=== PATIENT | female | born 1955 | race African-American/Black ===

== ENCOUNTER → 2018-11-09 | Outpatient (CLI) | payer OTHER ==
[2018-10-09 11:00] VITALS: BP 144/66
[~2018-11-09] MED LIST: AMLO5TAB10 PO
--- NOTE | 2018-11-09 14:31 | CARD ---
MR#: [id number] Date of Study: 11/09/2018 Ordering Physician: LIANE RODRIGUEZ, Referring Physician: LIANE RODRIGUEZ, Tech: Payton Snowden RDCS APPROVED REPORT INDICATION Chest Pain PROCEDURE The patient underwent an Exercise Stress Test using the [place] Protocol. Blood pressure, heart rate, a nd EKG were monitored. An Echocardiogram was performed by p 3 armament/ordnance ima technician in four stages in quad fashion. At peak stress four se lected images were obtained and placed side by side with resting images for comparison. STRESS ECHO FINDINGS The resting Echocardiogram showed normal left ventricular systolic contractility with an estimated Ej ection Fraction of about 60 %. The Resting Echocardiogram showed normal augmentation of myocardial wall segments using a 16 segment model. The Stress Echocardiogram showed normal augmentation of myocardial wall segments using a 16 segment m barney. The Stress Echocardiogram left ventricular systolic contractility has an estimated Ejection Fraction of about 65%. Test Type: Exercise Stress Nurse/Tech: Jaquan Moser RN Test Indications: CP Cardiac History and Allergies: See EMR Medications: See EMR Medical History: See EMR Resting ECG: SR Resting Heart Rate: 67 bpm Resting Blood Pressure: 123/49mmHg Pretest Chest Pain: No chest pain Nurse/Tech Notes S1S2. Consent: The procedure was explained to the patient in lay terms. Informed consent was witnessed. Dom eout was entered into [employer]. History and Stress Test performed by Coty Arthur R.N. Stress Symptoms Dyspnea POST EXERCISE Reason for Termination: Reached target heart rate Target HR: No Max HR: 152 bpm 96% of Maximum Predicted HR: 158 bpm Exercise duration: 6:02 min:sec, 3 Stage Exercise capacity: 7.0METs Max Blood Pressure: 210/70mmHg Blood Pressure response to exercise: Normal blood pressure response during stress. Heart Rate response to exercise: normal Chest Pain: No. Arrhythmia: Yes. PAC's in recovery stage ST Change: No. RESTING ECG Rhythm: Sinus Repolarization: Normal STRESS ECG Rhythm: Sinus Repolarization: Normal Stress EKG shows no significant changes. Preliminary Notification Critical Value: No <Conclusion> The left ventricle is normal in size and wall thickness in both the rest and stress images. No significant EKG changes Below average exercise capacity. Low risk study Signed by : Liane Rodriguez, Electronically Approved : 11/09/2018 14:31:07
== END | disposition home or self-care (01) ==
LOC: ECHO 13:14
PROVIDERS: ATTEND Internal Medicine Cardiovascular Disease
DX: R07.9 Chest pain, unspecified (principal); I49.9 Cardiac arrhythmia, unspecified
CPT/HCPCS: 93017; 93350

== ENCOUNTER → 2019-03-17 | Outpatient (CLI) | payer OTHER ==
[2018-10-09 11:00] VITALS: BP 144/66
--- NOTE | 2019-03-17 14:32 | KCIC ---
Pelvic ultrasound HISTORY: Postmenopausal bleeding and cramping. Per patient, patient had a biopsy one month ago, results are not known. Transabdominal scan: Uterus measures 12.5 x 5.7 x 8.0 cm. Uterus is heterogeneous. Ovaries are not visualized. Endovaginal scan: The endometrium is enlarged and heterogeneous with a complex appearance. The abnormal tissue at the endometrium measures about 4.0 x 6.1 x 3.6 cm. This has a heterogeneous appearance with areas of increased in areas of decreased echogenicity, and a possible complex fluid component. No definite hypervascularity is confirmed within this tissue. Right and left ovaries are not seen, may be due to bowel gas. There is no significant free pelvic fluid identified. There are some echogenic reflectors in the cervix likely calcification. IMPRESSION: 1. Large area of nonspecific abnormal tissue at the endometrium. This could represent an endometrial mass, endometritis or endometrial hemorrhage. 2. Ovaries are not visualized, likely due to bowel gas. Electronically signed by: Rainer Perez MD (03/17/2019 2:29 PM) [facility]
--- NOTE | 2019-03-17 17:35 | KCIC ---
Bilateral digital screening mammograms: Reason for examination: Routine screening. New baseline. Interpretation was made with the benefit of CAD. The skin and nipples show no abnormalities. No abnormal axillary lymph nodes are seen. The breast parenchyma shows scattered fibroglandular density. (Breast density: Category B.) There are small nodules with lucent maynor in the 4:00 B position of the left breast and 10:00 C position of the right breast consistent with intramammary lymph nodes. There are no other dominant masses, suspicious calcifications or architectural distortions. Impression: No evidence of malignancy. Recommend routine screening. BI-RADS Category 2: Benign. "Our facility is accredited by the [employer] Mammography Program." This patient's information has been entered into a reminder system for the patient to be notified with the results of her examination and a target date for the next mammogram. Electronically signed by: Evelin Dean MD (03/17/2019 5:32 PM) [id number]
== END | disposition home or self-care (01) ==
LOC: KCIC MAMMO 08:32
PROVIDERS: ATTEND Obstetrics & Gynecology
DX: Z12.31 Encounter for screening mammogram for malignant neoplasm of breast (principal); N63.11 Unspecified lump in the right breast, upper outer quadrant; N63.23 Unspecified lump in the left breast, lower outer quadrant; N95.0 Postmenopausal bleeding; N85.8 Other specified noninflammatory disorders of uterus
CPT/HCPCS: 76830; 76856; 77067

== ENCOUNTER 2020-08-03 01:53 | Emergency (ER) | payer OTHER ==
[~2020-08-03] VITALS: Ht 162.6 cm; Wt 90.1 kg
[~2020-08-03 01:53] MED LIST changes: +AMLO-186 PO; -AMLO5TAB10 PO
[2020-08-03 02:08] VITALS: BP 139/69
--- NOTE | 2020-08-03 02:22 | PHYS DOC ---
Past Medical History Past Medical History: Cancer, Glaucoma Past Surgical History: Other Additional Past Surgical Histo: L EYE SX, R ROTATOR CUFF SX Smoking Status: Never Smoker Alcohol Use: None Drug Use: None General Adult EDM: Chief Complaint: POST-OP PROBLEM HPI: HPI: Patient is a 4-year-old female presenting with daughter for right upper extremity PICC line problems. Patient has GI related cancer that "begins with an E", but patient is unaware of the exact name. States she is currently receiving chemotherapy every Thursday in outpatient setting. She has had left upper extremity PICC line but this was recently removed and right upper extremity PICC line was placed today. Patient cites no complications during insertion but admits to mild residual blood underneath Tegaderm. Patient was on the phone with her daughter and discussed the PICC line placement today and findings of residual blood, daughter was concerned about said blood and transported mother to our facility for evaluation. On arrival, patient AAO x3, no acute distress, is asymptomatic Review of Systems: Review of Systems: Fourteen body systems of review of systems have been reviewed. See HPI for pertinent positives and negative responses, other rutledge all other systems are negative, non-pertinent or non-contributory Heart Score: Risk Factors: Risk Factors: DM, Current or recent (<one month) smoker, HTN, HLP, family history of CAD, obesity. Risk Scores: Score 0 - 3: 2.5% MACE over next 6 weeks - Discharge Home Score 4 - 6: 20.3% MACE over next 6 weeks - Admit for Clinical Observation Score 7 - 10: 72.7% MACE over next 6 weeks - Early Invasive Strategies Allergies: Allergies: Allergies Coded Allergies Type Severity Reaction Last Updated Verified Penicillins Allergy Intermediate Itching 10/08/18 Yes Physical Exam: PE: Constitutional: Well developed, well nourished, no acute distress, non-toxic ap pearance. HENT: Normocephalic, atraumatic, bilateral external ears normal, oropharynx moist, no oral exudates, nose normal. Eyes: PERRLA, EOMI, conjunctiva normal, no discharge. Neck: Normal range of motion, no tenderness, supple, no stridor. Cardiovascular: Heart rate regular, sinus rhythm, no murmurs rubs or gallops Lungs & Thorax: Bilateral breath sounds clear to auscultation Abdomen: Bowel sounds normal, soft, no tenderness, no masses, no pulsatile masses. Nonsurgical abdomen, no peritoneal signs Skin: Warm, dry, no erythema, no rash. Right upper extremity PICC line in place, dried/residual blood underneath the Tegaderm without active extravasation or obvious bleeding. Line flushes with normal saline well, not dislodged, well- appearing without any pain to palpation, crepitus, exudate or other abnormalities Back: No tenderness, no CVA tenderness. Extremities: No tenderness, no cyanosis, no clubbing, ROM intact, no edema. Neurologic: Alert and oriented X 3, grossly normal motor & sensory function, no focal deficits noted. Psychologic: Affect normal, judgement normal, mood normal. EKG: EKG: [] Radiology/Procedures: Radiology/Procedures: [] Course & Med Decision Making: Course & Med Decision Making ABCs unremarkable Comprehensive history and physical exam obtained. Patient has well-appearing right upper extremity PICC line blood likely from placement. No active bleeding. Line flushes well, is well placed and secured. Dressing clean, dry and intact I discussed limited role in further diagnostic work-up and/or intervention. I reassured both patient and daughter of physical exam findings today. Patient has good access to care with PCP and oncologist in outpatient setting, I advised him to follow-up on this matter in outpatient setting. Strict return precautions were discussed with good understanding by both patient and daughter, all questions and concerns addressed prior to ER departure in good condition Kacey Disclaimer: Kacey Disclaimer: This electronic medical record was generated, in whole or in part, using a voice recognition dictation system. Departure Departure Impression: Primary Impression: Bleeding from PICC line Disposition: 01 DC HOME SELF CARE/HOMELESS Condition: GOOD Referrals: MAURA JIMENEZ (PCP) Patient Instructions: PICC Home Guide Additional Instructions: As discussed prior to ER departure, please call your primary care physician and oncologist first thing in the morning when their office is open to discuss ER visit As indicated, there is no indication for any further ER work-up and/or intervention If any concerning signs or symptoms present prior to outpatient follow-up please do not hesitate to come back for repeat examination It was a pleasure to take care of you and I wish you the best going forward! FERNANDO SOLOMON DO Aug 03, 2020 02:22
== END 2020-08-03 02:31 | disposition home or self-care (01) ==
LOC: ER 01:53
DX: T82.848A Pain due to vascular prosthetic devices, implants and grafts, initial encounter (principal); Z85.9 Personal history of malignant neoplasm, unspecified; Z98.890 Other specified postprocedural states; Z88.0 Allergy status to penicillin
CPT/HCPCS: 99281